=== PATIENT | female | born 1975 | race Hispanic/Latino ===

== ENCOUNTER 2023-02-20 05:04 | Emergency (ER) | payer SELFPAY ==
[2023-02-20] MEDS ORDERED: Ibuprofen 800 MG TAB ONE (05:37)
[2023-02-20] MEDS ORDERED: Ondansetron ODT 4 MG TAB ONE (05:37)
[2023-02-20 05:47] LABS: Hemoglobin 10.9 g/dL (12.0-16.0)
[2023-02-20 05:56] LABS: Hematocrit 36.4 % (36.0-47.0)
[2023-02-20 05:58] LABS: BHCG - Serum Negative (NEGATIVE); Pregs Control Background? CLEAR/WHITE (CLR/WHITE); Pregs Control Bar Appear? YES (CONTROL BAR)
== END 2023-02-20 06:16 | disposition home or self-care (01) ==
LOC: MADERS 05:04
DX: J10.1 Influenza due to other identified influenza virus with other respiratory manifestations (principal); E03.9 Hypothyroidism, unspecified; Z79.899 Other long term (current) drug therapy
CPT/HCPCS: 36415; 84703; 85014; 85018; 87804; 99283; Q0162